=== PATIENT | female | born 1970 | race Two or more races ===

== ENCOUNTER → 2020-09-23 | Outpatient (CLI) | payer OTHER, SELFPAY ==
--- NOTE | 2020-09-23 11:00 | EMB_PTH ---
PATIENT: SHEA DIAZ LOC: [facility] U#:[id number] AGE/SX: 49/F ROOM: RE09/23/[address]: Dr. Manuel Oakes MD : 1970 BED: DIS: 09/23/2020 SPEC #: [id number] RECD: 09/23/20 13:32 STATUS: CLINT JAYDEN #: [id number] HASMUKH: 09/23/20 11:[address]: Manuel Oakes DEPT: SURGICAL PATHOLOGY RECD BY: Araceli Tinoco Tissues: Endometrium, NOS Procedures: Surgery Specimen Level IV HEADER OPERATION: Endometrial biopsy PRE-OP DIAGNOSIS: Heavy irregular menses TISSUE SUBMITTED: Endometrial biopsy MICROSCOPIC DIAGNOSIS Endometrium, biopsy: Mildly disordered proliferative endometrium. AM:xavier 09/25/2020 MICROSCOPIC DESCRIPTION Slides are reviewed. GROSS DESCRIPTION Received in fixative is one container labeled with the patient's name and designated EM biopsy. The specimen consists of multiple fragments of layton hemorrhagic soft tissue that in aggregate measure 3 x 2.5 x 0.3 cm. The specimen is totally submitted in one cassette. / SJ:rg 09/24/20 TC:5 CPT: 28016
== END | disposition home or self-care (01) ==
LOC: LABSPEC 13:11
PROVIDERS: Visit Provider Obstetrics & Gynecology
DX: N92.6 Irregular menstruation, unspecified (principal)
CPT/HCPCS: 88305